=== PATIENT | female | born 1965 | race Caucasian/White ===

== ENCOUNTER 2017-06-16 19:26 | Emergency (ER) | payer BC ==
[~2017-06-16] VITALS: Ht 175.3 cm; Wt 74.8 kg
[2017-06-16] MEDS ORDERED: GIANVI 3 MG-0.1 EACH PO (19:57)
[2017-06-16 20:11] LABS: URINE BILIRUBIN NEGATIVE (Negative); URINE BLOOD 3+ (Negative); URINE COLOR YELLOW; URINE GLUCOSE-RANDOM* NEGATIVE (Negative); URINE KETONES NEGATIVE (Negative); URINE PROTEIN (DIPSTICK) 3+ (Negative); URINE SPECIFIC GRAVITY >= 1.030 (1.003-1.035); URINE UROBILINOGEN 0.2 E.U./dl (0.2-1.0)
[2017-06-16 20:13] LABS: URINE LEUKOCYTES-REFLEX 1+ (Negative)
[2017-06-16 20:24] LABS: ABSOLUTE NEUTROPHILS 9.8 thou/uL (1.4-8.2); BASOPHILS 0.4 % (0.0-2.0); EOSINOPHILS 0.6 % (0.0-3.0); HEMATOCRIT 35.5 % (37.0-47.0); HEMOGLOBIN 11.9 gm/dL (12.0-15.0); LYMPHOCYTES 19.5 % (24.0-44.0); MCH 29.9 pg (26.0-34.0); MCHC 33.5 g/dL (28.0-37.0); MCV 89.3 fL (80.0-100.0); PLATELET COUNT 296 thou/uL (150-400); POLYS 71.5 % (36.0-66.0); RBC 3.97 mil/uL (4.20-5.00); RDW 12.9 % (10.5-14.5); WBC 13.7 thou/uL (4.0-11.0)
[2017-06-16 20:26] LABS: MANUAL DIFF NO
[2017-06-16 20:28] LABS: CALCIUM 8.8 mg/dL (8.5-10.1); CREATININE 0.9 mg/dL (0.6-1.0); POTASSIUM 3.5 mmol/L (3.5-5.1)
[2017-06-16 20:34] LABS: ALBUMIN 3.5 g/dL (3.4-5.0); TOTAL BILIRUBIN 0.2 mg/dL (<0.1-1.0); TOTAL PROTEIN 7.1 g/dL (6.4-8.2)
[2017-06-16 20:48] LABS: CASTS None Seen /LPF (None Seen); SQUAMOUS 4-10 Moderate /LPF (0-3)
[2017-06-16 20:51] LABS: CRYSTALS None Seen /LPF (None Seen); URINE RBC >20 Many /HPF (0-2)
[2017-06-16] MEDS ORDERED: PHENERGAN 25 MG25 M1 PO (22:05)
[2017-06-16 22:48] VITALS: BP 138/73
== END 2017-06-16 22:35 | disposition home or self-care (01) ==
LOC: ER 19:26
PROVIDERS: Physician Assistant
DX: R11.2 Nausea with vomiting, unspecified (principal); N12 Tubulo-interstitial nephritis, not specified as acute or chronic; D72.829 Elevated white blood cell count, unspecified; Z88.2 Allergy status to sulfonamides